=== PATIENT | female | born 1965 | race Caucasian/White ===

== ENCOUNTER 2017-09-14 00:30 | Emergency (ER) | payer OTHER ==
[2017-09-14 00:50] LABS: EOSINOPHIL (%) 3.6 % (0-5); EOSINOPHIL COUNT 0.3 K/uL (0-0.3); HEMATOCRIT 36.9 % (36.0-46.0); IMMATURE GRANULOCYTE (%) 0.6 % (0.0-0.7); INSTRUMENT ABS NEUTROPHIL CT 3.6 K/uL; LYMPHOCYTE COUNT 2.9 K/uL (1.0-2.8); MCH 30.8 PG (29.0-34.0); MCHC 35.5 G/DL (30.0-36.0); MCV 86.8 FL (83-99); MEAN PLAT.VOLUME 9.4 uM^3 (9.5-12.4); MONOCYTE (%) 5.9 % (3-12); MONOCYTE COUNT 0.4 K/uL (0-0.8); NEUTROPHIL (%) 49.8 % (45-76); NEUTROPHIL COUNT 3.6 K/uL (1.8-6.4); PLATELET COUNT 174 K/uL (156-360); RBC DIS.WIDTH-SD 38.5 % (39-53); RED BLOOD COUNT 4.25 M/uL (3.80-5.20); WHITE BLOOD COUNT 7.3 K/uL (4.1-10.2)
[2017-09-14 01:06] LABS: AMYLASE 77 IU/L (1-118); CHLORIDE 99 mEq/L (99-109); POTASSIUM 3.6 mEq/L (3.7-5.4); SODIUM 131 mEq/L (136-147)
[2017-09-14 01:07] LABS: GLUCOSE 91 mg/dL (70-99)
[2017-09-14 01:09] LABS: ANION GAP 12 MEQ/L (2-14)
[2017-09-14 01:10] LABS: SERUM ETHYL ALCOHOL 243 mg/dL
[2017-09-14 01:12] LABS: UREA NITROGEN (BUN) 11 mg/dL (9-23)
[2017-09-14 01:13] LABS: TROP-I INTERPRETATION NEGATIVE; TROPONIN-I < 0.01 ng/mL (0.0-0.30)
[2017-09-14 01:14] LABS: CREATINE KINASE 157 IU/L (1-294); LIPASE 44 U/L (1.0-51.0); TOTAL CK 157 IU/L (1-294)
[2017-09-14 01:15] LABS: GFR ESTIMATE (CALCULATED) > 59 mL/min/
[2017-09-14 01:21] LABS: QUANTITATIVE HCG 7.7 MIU/ML
[2017-09-14 01:22] LABS: CK-MB 4.4 ng/mL (0.0-4.9)
[2017-09-14 01:24] LABS: ADD MIUA? YES; BILIRUBIN NEGATIVE; BLOOD SMALL; COLOR COLORLESS ((YELLOW)); GLUCOSE (STRIP) NEGATIVE; KETONES NEGATIVE; LEUKOCYTES NEGATIVE; NITRITE NEGATIVE; PROTEIN (STRIP) NEGATIVE; SPECIFIC GRAVITY 1.003 (1.000-1.030); UROBILINOGEN 0.2 MG/DL (0.2-1.0)
[2017-09-14 01:29] LABS: BACTERIA NONE SEEN /HPF; EPITHELIAL CELLS RARE /HPF; MUCUS NONE SEEN /LPF; RED BLOOD CELLS 0-5 /HPF (0-5); UCUL ADDED? NO; WHITE BLOOD CELLS 0-5 /HPF (0-5)
[2017-09-14 01:33] LABS: AMPHETAMINE NEGATIVE (500 ng/mL); BARBITURATES NEGATIVE (200 ng/mL); BENZODIAZEPINES NEGATIVE (150 ng/mL); COCAINE NEGATIVE (150 ng/mL); INTERNAL CONTROLS VALID? YES; METHADONE NEGATIVE (200 ng/mL); METHAMPHETAMINE NEGATIVE (500 ng/mL); OPIATES (MORPHINE) NEGATIVE (100 ng/mL); OXYCODONE NEGATIVE (100 ng/mL); PHENCYCLIDINE NEGATIVE (25 ng/mL); PROPOXYPHENE NEGATIVE (300 ng/mL); THC CANNABINOIDS NEGATIVE (50 ng/mL); TRICYCLIC ANTIDEPRESSANTS NEGATIVE (300 ng/mL)
[2017-09-14] MEDS ORDERED: NAPROXEN500 MG PO (02:00)
== END 2017-09-14 02:22 | disposition home or self-care (01) ==
LOC: TRA 00:30
PROVIDERS: Emergency Medicine
DX: S20.212A Contusion of left front wall of thorax, initial encounter (principal); V49.9XXA Car occupant (driver) (passenger) injured in unspecified traffic accident, initial encounter; Y92.410 Unspecified street and highway as the place of occurrence of the external cause; F10.129 Alcohol abuse with intoxication, unspecified; R56.9 Unspecified convulsions; Y90.8 Blood alcohol level of 240 mg/100 ml or more; K40.90 Unilateral inguinal hernia, without obstruction or gangrene, not specified as recurrent; Z90.5 Acquired absence of kidney; Z85.528 Personal history of other malignant neoplasm of kidney
CPT/HCPCS: 70450; 71250; 72125; 74176; 80048; 81003; 82150; 82550; 82553; 83690; 84484; 84702; 85025; 86850; 86900; 86901; 93005; 99281; 99285; G0480; J2405